=== PATIENT | male | born 1980 | race Caucasian/White ===

== ENCOUNTER 2022-01-18 23:01 | Emergency (ER) | payer BC ==
[2022-01-18] MEDS ORDERED: DOXYCYCLINE HYCLATE 100 MG CAPSULE PO ONE ×2 (23:12→23:21)
[2022-01-18] MEDS ORDERED: LIDOCAINE HCL 2% (20ML MULTI-DOSE VIAL) ONE (23:12)
[2022-01-18 23:13] VITALS: BMI 29.0
[2022-01-18 23:32] VITALS: BP 133/85; PULSE 60; TEMP 98.1
== END 2022-01-18 23:33 | disposition home or self-care (01) ==
LOC: FER 23:01
DX: S30.861A Insect bite (nonvenomous) of abdominal wall, initial encounter (principal); W57.XXXA Bitten or stung by nonvenomous insect and other nonvenomous arthropods, initial encounter
CPT/HCPCS: 99283-25